=== PATIENT | male | born 1975 | race Caucasian/White ===

== ENCOUNTER → 2020-01-05 | Outpatient (CLI) | payer OTHER ==
[~2020-01-05] VITALS: Ht 180.3 cm; Wt 89.8 kg
[~2020-01-05] MED LIST: CELEXA 20 MG TA20 MG PO; FAMOTIDINE 20 M20 MG PO; PROBIOTIC1 EAC2 PO; SKELAXIN 800 M800 M1 PO; TURMERIC 450-51 EACH PO; UNICOMPLEX M TA1 TA1 PO; VITAMIN D310 MC2 PO
--- NOTE | ~2020-01-05 | HPC ---
[facility] [place] [address] PAIN MANAGEMENT CONSULTATION Name: EARL PICHARDO Room #: REG CLRaul M.R.#: [id number] Admission: 01/05/20 Attend Phys: Svetlana Palomares MD Discharge: Date of : 75 Report #: [id number] THIS REPORT FOR: cc: Ben Weaver,Fabian Zhang MD ~ CC: Svetlana Weaver MD DATE OF SERVICE: 01/05/2020 CHIEF COMPLAINT: Low back pain with radiation into the right leg through the buttock. HISTORY OF PRESENT ILLNESS: This is a pleasant 44-year-old gentleman who Dr. Weaver asked me to see today for lumbar radiculopathy. He is a good candidate for an epidural injection. He has had back pain off and on over the years. His last episode of pain that was severe dates back several years. At that time, he had a series of 3 epidural injections and responded favorably without recurrence for a number of years. He began experiencing this episode of pain in April. It starts in the back and radiates through his buttock on the right, all the way down to the foot. He says it feels like a knife being stabbed in his leg. It is made worse by prolonged sitting. He has found that if he takes a walk with his , taking his dogs out or just to go out for an exercise, walk, he feels better. Pain averages 5, but can be as high as a 9 on a daily basis depending on activities. Pain is constant, sharp, stabbing and tender. He does have an MRI, which I reviewed with him. It appears that the pain generator is at L4-L5 where there is disk space narrowing and disk desiccation. There is disk bulging back into the canal about 0.4 cm posterior and it is associated with a deformity of the paracentral right thecal sac. This in combination with degenerative facet changes and right disk osteophyte results in narrowing of the lateral foramen as well as the lateral recess. Left does not look too bad, so his symptoms correlate with the MRI. Other levels show only mild degenerative changes. MEDICATIONS: Skelaxin, vitamin D, multivitamins, turmeric, probiotics, citalopram, famotidine. ALLERGIES: None. PAST MEDICAL HISTORY: Positive for asthma and hypertension. PAST SURGICAL HISTORY: Tonsils removed in 1982, hernia repair 2014, [address] [address] PAIN MANAGEMENT CONSULTATION Name: EARL PICHARDO Room #: REG CLI Yoel#: [id number] Admission: 01/05/20 Attend Phys: Svetlana Palomares MD Discharge: Date of : 75 Report #: [id number] appendectomy in 1995. REVIEW OF SYSTEMS: Positive for occasional abdominal pain, night sweats, fatigue, weakness, numbness and tingling into the affected leg and a history of depression. SOCIAL HISTORY: Smokes a pack a day and was counseled. 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 He does drink alcohol about 4-5 beverages per week, generally in a social setting. PHYSICAL EXAMINATION: GENERAL: Pleasant gentleman, alert and oriented. No signs of depression or anxiety today during the visit. He is 5 feet 11 inches, 198 pounds, BMI is 27.6. He moves independently from sitting to standing position. His gait is not antalgic. He has no evidence of weakness or unusual movements. VITAL SIGNS: Blood pressure 147/93, heart rate 58, respirations 16, O2 sat 100. CHEST: Clear. No wheezing. CARDIAC: Rhythm regular. No audible murmur. ABDOMEN: Soft. MUSCULOSKELETAL: Spine is of normal alignment. He has pain with forward flexion to about 30 degrees and can go no further. That leaves his fingers about 2 feet off the floor! He has mild pain with back extension. Lateral tilt reproduces pain in the right side. In the sitting position and supine position, there is straight leg raising discomfort in the L5 distribution consistent with his MRI and report. IMPRESSION: L4-L5 discogenic lumbar radiculopathy involving primarily the L5 nerve root by report and by dermatomal distribution. RECOMMENDATIONS: L4-L5 epidural injection under fluoroscopic guidance. We will reschedule the appointment for an injection in 1-2 weeks. By: [id number] Fabian Houser MD /nt
[2020-01-05 10:44] VITALS: BP 147/93
--- NOTE | 2020-01-05 11:13 | NUR ---
Pain Clinic Assessment: 1. History of Osteoarthritis: History of Rheumatoid Arthritis: 2. Height: 5 ft. 11 in. 180.3 cm. Weight: 198.0 lb. oz. 89.812 kg. Patient's BMI: 27.6 3. Vital Signs: BP: 147/93 Pulse: 58 Resp: 16 Temp: 02 Sat: 100 ECG Mon: 4. Pain Intensity: 5; 9 AT WORST 5. Fall Risk: Dizziness: N Needs help standing or walking: N Fallen in the last 3 months: N Fall risk comments: 6. Patient on Blood Thinner: None 7. History of Hypertension: Y 8. Opioid Therapy greater than 6 weeks: N Opiate Contract Signed: 9. Risk Assessment Tool Provided: 2-LOW RISK 10. Functional Assessment Tool: 11. Recreational Drug Use: Never Drug Type: Tobacco Use: Current Every Day Smoker Tobacco Type: Cigarettes Amount or Packs/day: 1 How Many Years: Alcohol Use: Yes Frequency: Weekly Quant: 4-5
== END ==
LOC: PAIN 12-27 13:00
PROVIDERS: ATTEND Anesthesiology Pain Medicine
DX: M54.16 Radiculopathy, lumbar region (principal); Z79.899 Other long term (current) drug therapy

== ENCOUNTER → 2020-01-22 | Outpatient (CLI) | payer OTHER ==
[~2020-01-22] VITALS: Ht 180.3 cm; Wt 90.0 kg
--- NOTE | ~2020-01-22 | HPC ---
[facility] [place] [address] PAIN MANAGEMENT CONSULTATION Name: EARL PICHARDO Room #: REG CLRaul .Damaris.#: [id number] Admission: 01/22/20 Attend Phys: Fabian Houser MD Discharge: Date of : 75 Report #: [id number] THIS REPORT FOR: cc: Ben Weaver,Fabian Zhang MD ~ CC: Fabian Weaver DATE OF SERVICE: 01/22/2020 Followup visit for lumbar epidural injection. I saw the patient in consultation on 01/05/2020. We were unable to perform the injection on that day. We rescheduled him for today and he is anxious to proceed with the injection. He continues to report pain that radiates through his right leg and buttock. Pain intensity is 5, 9 at its worst. It follows a dermatomal distribution of L5-S1. I reviewed his MRI with him today. There is a mild disk space narrowing and disk desiccation at 4-5 with protrusion to the right. This extends about 0.3 to 0.4 cm posterior to L4-L5 and does cause some contour deformity to the ventral midline on the right paracentral thecal sac. That would be the location for the injection today in the right paramedian approach. IMPRESSION: Lumbar radiculopathy secondary to discogenic mechanisms, L4-L5. Right L5-S1 distribution. PROCEDURE: Epidural steroid injection under fluoroscopic guidance. PROCEDURE NOTE: After both written and informed consent to include risk of spinal cord damage, increased pain, weakness and dural puncture, the patient was taken to the fluoroscopy suite, placed in the prone position. After sterile prep and drape, a skin wheal with lidocaine was raised. A 20-gauge epidural Tuohy needle was inserted in the midline at ____ with good loss to resistance. Negative aspiration for cerebrospinal fluid or blood was noted. Then 1 mL of Omnipaque under biplanar fluoroscopy showed good spread within the epidural space. This was followed with 3 mL of 0.5% lidocaine and 80 mg of triamcinolone, was then injected to flush the needle; it was removed. The patient was monitored for an appropriate period of time and discharged in good and stable condition. By: 1524 [id number] Fabian Houser MD /nt
[2020-01-22 14:44] VITALS: BP 141/90
--- NOTE | 2020-01-22 14:59 | NUR ---
Pain Clinic Assessment: 1. History of Osteoarthritis: BACK History of Rheumatoid Arthritis: Not Applicable 2. Height: 5 ft. 11 in. 180.3 cm. Weight: 198.4 lb. oz. 89.994 kg. Patient's BMI: 27.7 3. Vital Signs: BP: 141/90 Pulse: 78 Resp: 14 Temp: 02 Sat: 98 ECG Mon: 4. Pain Intensity: 5 5. Fall Risk: Dizziness: N Needs help standing or walking: N Fallen in the last 3 months: N Fall risk comments: 6. Patient on Blood Thinner: None 7. History of Hypertension: Y 8. Opioid Therapy greater than 6 weeks: N Opiate Contract Signed: 9. Risk Assessment Tool Provided: 2-LOW RISK 10. Functional Assessment Tool: 48 11. Recreational Drug Use: Never Drug Type: Tobacco Use: Current Every Day Smoker Tobacco Type: Cigarettes Amount or Packs/day: 1 PACK DAY How Many Years: 28 Alcohol Use: Yes Frequency: Daily Quant: 2
== END | disposition home or self-care (01) ==
LOC: PAIN 07:05
PROVIDERS: ATTEND Anesthesiology Pain Medicine
DX: M51.36 Other intervertebral disc degeneration, lumbar region (principal); M54.16 Radiculopathy, lumbar region; G89.29 Other chronic pain; F17.210 Nicotine dependence, cigarettes, uncomplicated; Z98.890 Other specified postprocedural states; Z79.899 Other long term (current) drug therapy

== ENCOUNTER → 2020-06-17 | Outpatient (CLI) | payer OTHER | LOC: RAD → CAT 08:06 → RAD 08:06 | PROVIDERS: ATTEND Neuromusculoskeletal Medicine & OMM | DX: Z13.6 Encounter for screening for cardiovascular disorders (principal); I25.10 Atherosclerotic heart disease of native coronary artery without angina pectoris; E78.00 Pure hypercholesterolemia, unspecified ==

== ENCOUNTER 2021-04-09 08:36 | Emergency (ER) | payer OTHER ==
[~2021-04-09] VITALS: Ht 180.3 cm; Wt 87.1 kg
[2021-04-09 08:52] LABS: URINE BILIRUBIN NEGATIVE (Negative); URINE BLOOD NEGATIVE (Negative); URINE CLARITY CLEAR; URINE COLOR YELLOW; URINE GLUCOSE-RANDOM* NEGATIVE (Negative); URINE KETONES TRACE (Negative); URINE LEUKOCYTES-REFLEX NEGATIVE (Negative); URINE NITRITE-REFLEX NEGATIVE (Negative); URINE PROTEIN (DIPSTICK) NEGATIVE (Negative); URINE SPECIFIC GRAVITY 1.025 (1.005-1.035); URINE UROBILINOGEN 0.2 E.U./dl (0.2-1.0)
[2021-04-09] MEDS ORDERED: LIPITOR 20 MG T20 M1 PO (09:09)
[2021-04-09] MEDS ORDERED: METRONIDAZOLE500 M4 PO (09:10)
[2021-04-09] MEDS ORDERED: METAXALONE400 MG PO (09:10)
[2021-04-09 09:17] LABS: ABSOLUTE NEUTROPHILS 4.6 thou/uL (1.4-8.2); BASOPHILS 0.9 % (0.0-2.0); EOSINOPHILS 0.7 % (0.0-3.0); HEMATOCRIT 42.6 % (42.0-52.0); HEMOGLOBIN 14.3 gm/dL (14.0-18.0); LYMPHOCYTES 25.2 % (24.0-44.0); MCH 32.6 pg (26.0-34.0); MCHC 33.7 g/dL (28.0-37.0); MCV 96.8 fL (80.0-100.0); MONOCYTES 8.5 % (1.0-8.0); PLATELET COUNT 174 thou/uL (150-400); POLYS 64.7 % (36.0-66.0); RDW 12.9 % (10.5-14.5); WBC 7.2 thou/uL (4.0-11.0)
[2021-04-09 09:31] LABS: INR 0.94; PROTIME 10.3 Seconds (10.5-12.1)
[2021-04-09 09:37] LABS: ANION GAP 8 mmol/L (7-16); BUN 20 mg/dL (7-18); CALCIUM 8.7 mg/dL (8.5-10.1); CHLORIDE 107 mmol/L (98-107); CO2 25 mmol/L (21-32); CREATININE 0.9 mg/dL (0.7-1.3); GLUCOSE 112 mg/dL (74-106); POTASSIUM 4.6 mmol/L (3.5-5.1); SODIUM 140 mmol/L (136-145)
[2021-04-09 09:42] LABS: ALBUMIN 3.4 g/dL (3.4-5.0); DIRECT BILIRUBIN < 0.1 mg/dL (<0.1-0.2); LIPASE 193 U/L (73-393); SGOT 22 U/L (15-37); SGPT 26 U/L (16-63); TOTAL BILIRUBIN 0.4 mg/dL (0.2-1.0)
[2021-04-09 10:46] VITALS: BP 122/75
--- NOTE | 2021-04-10 08:16 | EKG ---
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
== END 2021-04-09 10:50 | disposition home or self-care (01) ==
LOC: ER 08:36
PROVIDERS: Student in an Organized Health Care Education/Training Program
DX: R10.11 Right upper quadrant pain (principal); Z20.822 Contact with and (suspected) exposure to COVID-19; Z90.89 Acquired absence of other organs; Z90.49 Acquired absence of other specified parts of digestive tract; Z79.899 Other long term (current) drug therapy